=== PATIENT | female | born 2000 | race Caucasian/White ===

== ENCOUNTER 2021-08-12 22:52 | Emergency (ER) | payer MEDICAID ==
[~2021-08-12] VITALS: Ht 167.6 cm; Wt 90.0 kg
[2021-08-12 23:29] VITALS: BP 120/72
[2021-08-13] MEDS ORDERED: ACETAMINOPHEN 325MG TABLET PO ONE (00:45)
[2021-08-13] MEDS ORDERED: CYCLOBENZAPRINE 10MG TABLET PO ONE (02:45)
[2021-08-13] MEDS ORDERED: CYCL10TA7 MT (03:43)
[2021-08-13] MEDS ORDERED: IBUP-2030 MT (03:43)
== END 2021-08-13 03:58 | disposition home or self-care (01) ==
LOC: ER 22:52
DX: S02.2XXA Fracture of nasal bones, initial encounter for closed fracture (principal); S20.211A Contusion of right front wall of thorax, initial encounter; M54.2 Cervicalgia; M54.89 Other dorsalgia; H57.12 Ocular pain, left eye; M79.18 Myalgia, other site; Y04.2XXA Assault by strike against or bumped into by another person, initial encounter; Y93.89 Activity, other specified; Y92.89 Other specified places as the place of occurrence of the external cause
CPT/HCPCS: 70486; 71101; 81025; 99284

== ENCOUNTER 2021-09-20 23:10 | Emergency (ER) | payer MEDICAID ==
[~2021-09-20] VITALS: Ht 165.1 cm; Wt 66.0 kg
[~2021-09-20 23:10] MED LIST: CYCL10TA21 MT; IBUP-2030 MT
[2021-09-20 23:27] VITALS: BP 118/73
== END 2021-09-21 04:45 | disposition left against medical advice (07) ==
LOC: ER 23:19
DX: Z53.21 Procedure and treatment not carried out due to patient leaving prior to being seen by health care provider (principal)